=== PATIENT | male | born 1975 | race Caucasian/White ===

== ENCOUNTER 2019-06-14 20:30 | Emergency (ER) | payer MEDICAID ==
[~2019-06-14] VITALS: Ht 170.2 cm; Wt 94.8 kg
[2019-06-14 20:36] VITALS: BP 141/76; Ht 170.2 cm; Wt 94.8 kg
== END 2019-06-14 21:05 | disposition left against medical advice (07) ==
LOC: ED 20:30
DX: Z53.21 Procedure and treatment not carried out due to patient leaving prior to being seen by health care provider (principal)